=== PATIENT | male | born 1995 | race Caucasian/White ===

== ENCOUNTER 2022-05-29 10:40 | Emergency (ER) | payer OTHER ==
[~2022-05-29] VITALS: Ht 182.9 cm; Wt 72.6 kg
[2022-05-29] MEDS ORDERED: CIPRO500 MG PO (12:35)
[2022-05-29] MEDS ORDERED: METRONIDAZOLE500 MG PO (12:35)
[2022-05-29] MEDS ORDERED: ONDANSETRON ODT4 MG PO (12:40)
== END 2022-05-29 12:59 | disposition home or self-care (01) ==
LOC: ED 10:40
DX: A09 Infectious gastroenteritis and colitis, unspecified (principal)
CPT/HCPCS: 36415; 80053; 81001; 83690; 85025; 96374; 96375; 99284-25; A9270; J1885; J2405; J7121